=== PATIENT | male | born 1995 | race Hispanic/Latino ===

== ENCOUNTER 2018-10-30 18:12 | Emergency (ER) | payer OTHER | END 2018-10-30 19:12 | disposition home or self-care (01) | LOC: EDH 18:12 | DX: K64.8 Other hemorrhoids (principal) ==

== ENCOUNTER 2019-06-06 22:45 | Emergency (ER) | payer OTHER, SELFPAY ==
[2019-06-06 23:16] LABS: BASOPHILS % (AUTO) 0.5 % (0.0-5.0); EOSINOPHILS % (AUTO) 1.2 % (0.0-8.0); HEMATOCRIT 41.4 % (42-54); LYMPHOCYTES % (AUTO) 21.2 % (21.0-51.0); MEAN CORPUSCULAR HEMOGLOBIN 30.4 pg (27.0-33.0); MEAN CORPUSCULAR HGB CONC 35.5 g/dL (32.0-36.0); MEAN CORPUSCULAR VOLUME 85.7 fL (79-99); MONOCYTES % (AUTO) 6.3 % (3.0-13.0); NEUTROPHILS % (AUTO) 70.7 % (40.0-77.0); PLATELET COUNT (AUTO) 266 K/uL (130-400); RED BLOOD CELL COUNT(AUTO) 4.83 MIL/uL (4.50-6.20); RED CELL DISTRIBUTION WIDTH 11.9 % (11.0-15.5); WHITE BLOOD COUNT (AUTO) 8.1 K/uL (4.8-10.8)
[2019-06-06 23:21] LABS: AMPHET/METH SCREEN,URINE NEGATIVE (NEGATIVE); BARBITURATE SCREEN, URINE NEGATIVE (NEGATIVE); BENZODIAZEPINES SCREEN,URINE NEGATIVE (NEGATIVE); CANNABINOID SCREEN,URINE NEGATIVE (NEGATIVE); COCAINE SCREEN,URINE NEGATIVE (NEGATIVE); OPIATE SCREEN,URINE NEGATIVE (NEGATIVE); PHENCYCLIDINE SCREEN,URINE NEGATIVE (NEGATIVE)
[2019-06-06 23:26] LABS: CREATININE 0.8 mg/dL (0.5-1.5); POTASSIUM 4.8 mmol/L (3.5-5.1)
[2019-06-06 23:31] LABS: ALBUMIN 4.4 g/dL (3.5-5.0); BILIRUBIN,TOTAL 2.1 mg/dL (0.2-1.0)
== END 2019-06-07 00:58 | disposition home or self-care (01) ==
LOC: EDH 22:45
DX: I49.1 Atrial premature depolarization (principal); R00.2 Palpitations; Z90.49 Acquired absence of other specified parts of digestive tract
CPT/HCPCS: 36415; 80053; 80305; 84484; 85025; 93005

== ENCOUNTER 2020-08-13 11:32 | Emergency (ER) | payer OTHER, SELFPAY ==
[~2020-08-13] VITALS: Ht 182.9 cm; Wt 93.0 kg
[2020-08-13 11:34] VITALS: BP 134/84
[2020-08-13] MEDS ORDERED: IBUPROFEN 600 MG TABLET PO ONE (11:45)
[2020-08-13] MEDS ORDERED: IBUP-2070 PO (12:40)
[2020-08-13] MEDS ORDERED: IBUPROFEN 200 MG TAB ONE (12:59)
[2020-08-13 13:55] VITALS: BP 114/57
== END 2020-08-13 14:03 | disposition home or self-care (01) ==
LOC: EDH 11:32
DX: M54.2 Cervicalgia (principal); R42 Dizziness and giddiness; Z79.899 Other long term (current) drug therapy; V89.2XXA Person injured in unspecified motor-vehicle accident, traffic, initial encounter; Y93.89 Activity, other specified; Y92.410 Unspecified street and highway as the place of occurrence of the external cause; Y99.8 Other external cause status
CPT/HCPCS: 72040

== ENCOUNTER 2022-02-26 18:56 | Emergency (ER) | payer OTHER ==
[~2022-02-26] VITALS: Ht 182.9 cm; Wt 88.0 kg
[~2022-02-26 18:56] MED LIST: IBUP-2070 PO
[2022-02-26 21:48] LABS: APPEARANCE,URINE CLEAR (CLEAR); BILIRUBIN,URINE NEGATIVE (NEGATIVE); COLOR,URINE COLORLESS (YELLOW); GLUCOSE, URINE (UA) NEGATIVE (NEGATIVE); KETONES,URINE 10 mg/dL (NEGATIVE); LEUKOCYTE ESTERASE ,URINE NEGATIVE Leu/uL (NEGATIVE); NITRATE,URINE NEGATIVE (NEGATIVE); OCCULT BLOOD,URINE NEGATIVE (NEGATIVE); PROTEIN,URINE NEGATIVE (NEGATIVE); UROBILINOGEN,URINE 0.2 mg/dL (0.2-1.0)
[2022-02-26] MEDS ORDERED: PROP10TA10 PO (22:52)
[2022-02-26] MEDS ORDERED: HYD25 PO (22:52)
[2022-02-26 23:19] VITALS: BP 145/92
[2022-02-26] MEDS ORDERED: HYDROXYZINE 25 MG TABLET PO ONE (23:30)
== END 2022-02-26 23:20 | disposition home or self-care (01) ==
LOC: EDH 18:56
DX: F41.9 Anxiety disorder, unspecified (principal); Z20.822 Contact with and (suspected) exposure to COVID-19; Z90.89 Acquired absence of other organs
CPT/HCPCS: 99284; 87635; 87804 ×2; 81003; 93005; C9803